=== PATIENT | male | born 1985 | race Caucasian/White ===

== ENCOUNTER 2020-05-16 02:56 | Inpatient (IN) | payer MEDICAID ==
[~2020-05-16] VITALS: Ht 182.9 cm; Wt 131.5 kg
[2020-05-16] MEDS ORDERED: DILTIAZEM HCL 25 MG IV ONE (03:10)
--- NOTE | 2020-05-16 03:19 | NUR ---
PT BIBRA C/O PALPITATIONS SINCE 229, PER EMS EKG SHOWED AFIB, TO ER BED 10, LINE STARTED LABS COLLECTED
[2020-05-16 03:27] LABS: BASOPHILS # (AUTO) 0.1 /CMM (0.0-0.2); EOSINOPHILS % (AUTO) 2.5 % (0.0-6.0); HEMATOCRIT 50 % (39-51); HEMOGLOBIN 17.2 g/dL (13.5-17.5); LYMPHOCYTES # (AUTO) 4.9 /CMM (0.8-4.8); MEAN CORPUSCULAR HGB CONC 35 g/dl (31.0-36.0); MEAN CORPUSCULAR VOLUME 94 fL (80-96); MONOCYTES # (AUTO) 0.6 /CMM (0.1-1.30); MONOCYTES % (AUTO) 5.6 % (2.0-12.0); NEUTROPHILS # (AUTO) 4.4 /CMM (1.8-8.9); NEUTROPHILS % (AUTO) 42.9 % (43.0-81.0); PLATELET COUNT (AUTO) 259 /CMM (150-450); RED BLOOD CELL COUNT(AUTO) 5.28 MIL/uL (4.5-6.0); WHITE BLOOD COUNT (AUTO) 10.2 K/uL (4.3-11.0)
[2020-05-16] MEDS ORDERED: IV NS 0.9% 1,000 ML BAG IV ONE (03:30)
[2020-05-16] MEDS ORDERED: DILTIAZEM HCL 50 MG IV IV ONE (03:30)
[2020-05-16 03:33] LABS: CALCIUM, SERUM 10.2 mg/dL (8.5-10.1); CARBON DIOXIDE 28 mmol/L (21-32); CHLORIDE 105 mmol/L (98-107); CREATININE 1.2 mg/dL (0.6-1.3); GLUCOSE 119 mg/dL (74-106); POTASSIUM 3.1 mmol/L (3.5-5.1); SODIUM SERUM 142 mmol/L (136-145); UREA NITROGEN, BLOOD 12 mg/dL (7-18)
[2020-05-16 03:44] LABS: ALANINE AMINOTRANSFERASE 106 U/L (12-78); ALBUMIN 4.2 g/dL (3.4-5.0); ALKALINE PHOSPHATASE 60 U/L (46-116); ASPARTATE AMINOTRANSFERASE 41 U/L (15-37); B-TYPE NATRIURETIC PEPTIDE 28 PG/ML (0-125); BILIRUBIN,DIRECT 0.1 mg/dL (0.0-0.2); BILIRUBIN,TOTAL 0.5 mg/dL (0.2-1.0); TOTAL PROTEIN, SERUM 7.8 g/dL (6.4-8.2)
--- NOTE | 2020-05-16 05:39 | NUR ---
panel paged per dr arellano.
[2020-05-16] MEDS ORDERED: ONDANSETRON HCL/PF 4 MG/2 ML VIAL IVP PRN (06:30)
[2020-05-16] MEDS ORDERED: ACETAMINOPHEN 325 MG TABLET PO PRN (06:30)
[2020-05-16] MEDS ORDERED: hydrALAZINE HCL 25 MG TABLET PO PRN (06:30)
--- NOTE | 2020-05-16 06:33 | NUR ---
REC'D COVID RESULT : NEGATIVE
--- NOTE | 2020-05-16 06:36 | NUR ---
CALLED IN REPORT TO PRINCE RIVAS
--- NOTE | 2020-05-16 06:45 | NUR ---
TELE/RN ADMITTING NOTES: RECEIVED PATIENT REPORT FROM CISCO LARA NURSE. PT ARRIVED TO THE UNIT IN STABLE CONDITION VIA GURNEY AT 0645 UNDER ACLS PROTOCOL. ORIENTED PT TO STAFF AND UNIT. SKIN INTACT. IV ON THE LEFT AC #18G, SL. PT DENIES PAIN. NO SOB NOTED, NO S/S OF DISTRESS. TELE MONITORING ON WITH READING OF SR WITH PVC HR OF 70S . INITIAL VS TAKEN. BP: 146/81, HR: 63, RR; 18, TEMP 98.8. O2SAT: 98% ON ROOM AIR. WILL ENDORSE TO DAY SHIFT RN FOR NITO.
--- NOTE | 2020-05-16 07:30 | NUR ---
TELE/RN NOTE THE PATIENT IS RECEIVED IN BED. ALERT AND ORIENTED X4. DENIES PAIN OR ANY PALPITATIONS. IN ROOM AIR AND DENIES SOB. RESPIRATION REGULAR AND UNLABORED. IN NO APPARENT DISTRESS. EXTERNAL TELE BOX READING IS SR. LAC G 18 PATENT AND SALINE LOCKED. BED LOW AND LOCKED. SIDE RAILS UP X3. CALL LIGHT WITHIN REACH. WILL CONTINUE TO MONITOR.
--- NOTE | 2020-05-16 07:30 | NUR ---
TELE/RN NOTE RECEIVED THE PATIENT IN BED. PATIENT IS AWAKE, ALERT AND ORIENTED X4. IN ROOM AIR AND DENIES SOB. RESPIRATION REGULAR AND UNLABORED. DENIES PAIN. PATIENT DENIES HAVING PALPITATION OR ANY OTHER DISCOMFORT. THE PATIENT IN NO APPARENT DISTRESS. LAC G 18 PATENT AND SALINE LOCKED. BED LOW AND LOCKED. SIDE RAILS UP X2. CALL LIGHT WITHIN REACH. WILL CONTINUE TO MONITOR.
--- NOTE | 2020-05-16 07:35 | NUR ---
TELE/RN NOTE EXTERNAL TELE BOX READING IS SR 73.
[2020-05-16] MEDS ORDERED: ENOXAPARIN SODIUM 120 MG/0.8 ML DISP.SYRIN SQ SCH (07:46)
[2020-05-16 08:04] VITALS: BP 145/76
[2020-05-16 08:11] VITALS: BP 145/76
[2020-05-16 08:19] LABS: ALANINE AMINOTRANSFERASE 96 U/L (12-78); ALBUMIN 3.8 g/dL (3.4-5.0); ALKALINE PHOSPHATASE 45 U/L (46-116); ASPARTATE AMINOTRANSFERASE 33 U/L (15-37); BILIRUBIN,TOTAL 0.3 mg/dL (0.2-1.0); CALCIUM, SERUM 9.2 mg/dL (8.5-10.1); CARBON DIOXIDE 25 mmol/L (21-32); CHLORIDE 107 mmol/L (98-107); GLUCOSE 120 mg/dL (74-106); LIPASE 106 U/L (73-393); MAGNESIUM 2.1 mg/dL (1.8-2.4); POTASSIUM 3.5 mmol/L (3.5-5.1); SODIUM SERUM 140 mmol/L (136-145); TOTAL PROTEIN, SERUM 7.1 g/dL (6.4-8.2); UREA NITROGEN, BLOOD 14 mg/dL (7-18)
[2020-05-16] MEDS ORDERED: Potassium Chloride 40 MEQ in IV NS 0.9% 1,000 ML IV SCH (08:30)
[2020-05-16 08:31] LABS: CHOLESTEROL 178 mg/dL (<200); HDL CHOLESTEROL 39 mg/dL (40-60); LDL 114 mg/dL (0-99); THYROID STIMULATING HORMONE 2.464 uIU/mL (0.358-3.74); TRIGLYCERIDES 248 mg/dL (30-150)
--- NOTE | 2020-05-16 08:40 | NUR ---
ICU/RN PT TRANSFER FROM ROOM 314-2 FOR CARDIOVERSION.PT IS AWAKE ,ALERT,ORIENTED.PLACED ON ICU MONITOR. HAS SINUS RHYTHM AT 63-[address] ARELLANO NOTIFIED. EKG ORDERED. SINUS RHYTHM CONFIRMED.OK TRANSFER PATIENT BACK TO TELE UNIT.
[2020-05-16] MEDS ORDERED: FAMOTIDINE (20 MG) 20 MG TABLET PO SCH (09:00)
--- NOTE | 2020-05-16 09:00 | NUR ---
TELE/RN NOTE THE PATIENT IS TRANSFERRED TO ICU PER ACLS PROTOCOL. THE PATIENT IN STABLE CONDITION. REPORT GIVEN TO
[2020-05-16] MEDS ORDERED: ANESTHESIA TRAY IN PYXIS 1 EA TRAY MC ONE (09:04)
[2020-05-16] MEDS ORDERED: METOPROLOL SUCCINATE 50 MG TAB.SR.24H PO SCH (10:00)
[2020-05-16 12:00] VITALS: BP 142/77
[2020-05-16] MEDS ORDERED: DILTIAZEM HCL 30 MG TABLET PO SCH (12:00)
[2020-05-16] MEDS ORDERED: METO50TA16 PO (13:20)
--- NOTE | 2020-05-16 15:00 | NUR ---
RN NOTE THE PATIENT IS ALERT AND ORIENTED X4. DISCHARGE EDUCATION PROVIDED AND HE VERBALIZED UNDERSTANDING. PRESCRIPTION GIVEN TO THE PATIENT AND COPY SAVED IN THE CHART. LAC G 18 LINE REMOVED AND COVERED WITH 2X2 GAUZE DUE TO MIN BLEEDING. THE PATIENT LEFT THE HOSPITAL IN STABLE CONDITION.
--- NOTE | 2020-05-16 15:53 | NUR ---
TELE/RN NOTE THE PATIENT IS BACK FROM ICU. DENIES PAIN/DISCOMFORT. IN ROOM AIR AND SATURATION IS AT 97%. DENIES SOB. RESPIRATION REGULAR AND UNLABORED. THE PATIENT IN NO APPARENT DISTRESS. LAC G 18 PATENT AND SALINE LOCKED. BED LOW AND LOCKED. SIDE RAILS UP X3. CALL LIGHT WITHIN REACH. WILL CONTINUE TO MONITOR.
== END 2020-05-16 15:25 | disposition home or self-care (01) | DRG 201 ==
LOC: ER 02:56 → TELE 05:46 → ICU 08:48 → TELE 12:29
PROVIDERS: ADMIT Hospitalist; ATTEND Hospitalist
DX: I48.91 Unspecified atrial fibrillation (principal); F41.9 Anxiety disorder, unspecified; E78.1 Pure hyperglyceridemia; E87.6 Hypokalemia; E66.9 Obesity, unspecified; E78.5 Hyperlipidemia, unspecified; G47.33 Obstructive sleep apnea (adult) (pediatric); Z87.891 Personal history of nicotine dependence; Z68.39 Body mass index [BMI] 39.0-39.9, adult; R74.0 Nonspecific elevation of levels of transaminase and lactic acid dehydrogenase [LDH]; K70.0 Alcoholic fatty liver; Z71.3 Dietary counseling and surveillance
CPT/HCPCS: 36415; 71045-TC; 76700-TC; 80048-TC; 80053-TC; 80061-TC; 80076-TC; 83690-TC; 83735-TC; 83880; 84443-TC; 84484-TC; 85025-TC; 85730-TC; 86803; 87081-TC; G0378; J1650; J3480; J3490; U0003-CS

== ENCOUNTER 2023-09-21 01:17 | Emergency (ER) | payer SELFPAY ==
[~2023-09-21] VITALS: Ht 175.3 cm; Wt 113.4 kg
[~2023-09-21 01:17] MED LIST: METO50TA16 PO
[2023-09-21] MEDS ORDERED: METOPROLOL TARTRATE INJ 5 MG/5 ML AMPUL ONE (01:57)
[2023-09-21] MEDS ORDERED: IV NS 0.9% 1,000 ML BAG IV ONE (02:00)
[2023-09-21] MEDS ORDERED: METOPROLOL TARTRATE INJ 5 MG/5 ML AMPUL IV ONE (02:00)
[2023-09-21 02:12] LABS: BASOPHILS # (AUTO) 0.1 K/uL (0.0-0.2); BASOPHILS % (AUTO) 0.6 % (0.0-2.0); EOSINOPHILS # (AUTO) 0.3 K/uL (0.0-0.7); EOSINOPHILS % (AUTO) 3.3 % (0.0-6.0); HEMATOCRIT 49 % (39-51); HEMOGLOBIN 17.2 g/dL (13.5-17.5); LYMPHOCYTES # (AUTO) 3.3 K/uL (0.8-4.8); LYMPHOCYTES % (AUTO) 34.5 % (20.0-44.0); MEAN CORPUSCULAR HEMOGLOBIN 32 PG (26.0-33.0); MEAN CORPUSCULAR HGB CONC 35 g/dl (31.0-36.0); MEAN CORPUSCULAR VOLUME 91 fL (80-96); MONOCYTES # (AUTO) 0.4 K/uL (0.1-1.30); MONOCYTES % (AUTO) 4.6 % (2.0-12.0); NEUTROPHILS # (AUTO) 5.4 K/uL (1.8-8.9); PLATELET COUNT (AUTO) 244 K/uL (150-450); RED BLOOD CELL COUNT(AUTO) 5.41 MIL/uL (4.5-6.0); RED CELL DISTRIBUTION WIDTH 13.1 % (11.5-15.0); WHITE BLOOD COUNT (AUTO) 9.5 K/uL (4.3-11.0)
[2023-09-21 02:17] LABS: CALCIUM, SERUM 9.1 mg/dL (8.5-10.1); CARBON DIOXIDE 26 mmol/L (21-32); CHLORIDE 104 mmol/L (98-107); GLUCOSE 209 mg/dL (74-106); POTASSIUM 3.2 mmol/L (3.5-5.1); SODIUM SERUM 140 mmol/L (136-145); UREA NITROGEN, BLOOD 11 mg/dL (7-18)
[2023-09-21 02:29] LABS: NT-PRO BNP 30 pg/mL (0-125)
[2023-09-21 02:30] LABS: THYROID STIMULATING HORMONE 3.775 uIU/mL (0.358-3.74)
[2023-09-21] MEDS ORDERED: METOPROLOL SUCCINATE 50 MG TAB.SR.24H PO SCH ×2 (02:30)
[2023-09-21] MEDS ORDERED: METO-358 PO (02:51)
[2023-09-21] MEDS ORDERED: METOPROLOL SUCCINATE 50 MG TAB.SR.24H PO ONE (02:53)
[2023-09-21 03:26] VITALS: BP 142/85; TEMP 98.1; O2SAT 97
== END 2023-09-21 03:27 | disposition home or self-care (01) ==
LOC: ER 02:04
DX: I48.20 Chronic atrial fibrillation, unspecified (principal); R00.2 Palpitations; Z79.899 Other long term (current) drug therapy
CPT/HCPCS: 99291; 96374; 96361; 93005 ×2; 71045; 85025; 80048; 36415; 84439; 84443; 84484; 83880; J3490; J7030